=== PATIENT | female | born 1975 | race African-American/Black ===

== ENCOUNTER 2018-10-29 16:51 | Inpatient (IN) | payer MEDICAID, OTHER ==
[~2018-10-29] VITALS: Ht 154.9 cm; Wt 85.3 kg
[2018-10-29] MEDS ORDERED: KETOROLAC 15MG/ML VIAL IV ONE (17:30)
[2018-10-29] MEDS ORDERED: ONDANSETRON HCL 4MG/2ML INJ IV ONE (17:30)
[2018-10-29] MEDS ORDERED: SODIUM CHLORIDE 0.9% 1,000 ML IV ONE (17:30)
[2018-10-29] MEDS ORDERED: ASPIRIN 81MG TABLET PO ONE (18:00)
[2018-10-29 19:31] LABS: BASOPHILS % 0.5 % (0.0-2.0); EOSINOPHILS % 0.6 % (0.0-5.0); HEMATOCRIT. 28.2 % (36.0-48.0); HEMOGLOBIN. 9.4 g/dL (12.0-16.0); LYMPHOCYTES % 15.6 % (20.0-50.0); MEAN CORPUSCULAR HEMOGLOBIN 23.3 pg (28.0-32.0); MEAN CORPUSCULAR VOLUME 69.8 fL (81.0-99.0); MEAN PLATELET VOLUME 8.2 fl (7.4-10.4); MONOCYTES % 5.1 % (2.0-8.0); NEUTROPHILS % 78.2 % (40.0-76.0); PLATELET 420 x1000/uL (130-400); RED BLOOD CELL COUNT 4.04 mill/uL (4.2-5.4); RED CELL DISTRIBUTION WIDTH 30.3 % (11.6-14.6)
[2018-10-29 19:37] LABS: CHLORIDE 109 mEq/L (98-107)
[2018-10-29] MEDS: NITROGLYCERIN 0.4MG TABLET SL SL PRN ×2 (19:39→19:57)
[2018-10-29 19:42] LABS: HCG SCREEN NEGATIVE
[2018-10-29] MEDS ORDERED: POTASSIUM CHLORIDE 20MEQ TABLET SR PO ONE (19:45)
[2018-10-29 20:02] LABS: PLATELET ESTIMATE INCREASED
[2018-10-29] MEDS ORDERED: MORPHINE SULFATE 4 MG/ML CPJ (NOT FOR IM USE) IV ONE (20:15)
[2018-10-29 20:29] LABS: D-DIMER 0.43 mg/L FEU (<0.50); INR 1.2; PARTIAL THROMBOPLASTIN TIME 27.3 sec (23.4-31.0); PROTHROMBIN TIME 11.6 sec (9.1-11.1)
[2018-10-29] MEDS ORDERED: IOHEXOL-350 100 ML BOTTLE ONE (20:39)
[2018-10-29 22:00] VITALS: BP 125/75
[2018-10-29 22:04] VITALS: BP 121/75
[2018-10-29] MEDS ORDERED: TLXL5 PO (22:41)
[2018-10-29] MEDS ORDERED: PROT40 PO (22:41)
[2018-10-29] MEDS ORDERED: APIX5TAB PO (22:41)
[2018-10-29] MEDS ORDERED: DOCU-138 PO (22:41)
[2018-10-29] MEDS ORDERED: IPRATROPIUM/ALBUTEROL 0.5-3(2.5)MG/3ML NEB INH PRN (23:45)
[2018-10-29] MEDS ORDERED: DIPHENHYDRAMINE 50MG/ML VIAL IV PRN (23:45)
[2018-10-29] MEDS ORDERED: CLONIDINE 0.1MG TABLET PO PRN (23:45)
[2018-10-29] MEDS ORDERED: MAGNESIUM/ALUMINUM HYDROXIDE/SIMETHICONE 30ML UDC PO PRN (23:45)
[2018-10-30] VITALS: BP 132/84
[2018-10-30] MEDS ORDERED: ACETAMINOPHEN 325MG TABLET PO PRN (00:15)
[2018-10-30] MEDS ORDERED: ONDANSETRON HCL 4MG/2ML INJ IV PRN (00:15)
[2018-10-30] MEDS ORDERED: LEVOFLOXACIN 500MG PREMIX 100 ML IV SCH (00:15)
[2018-10-30] MEDS: SODIUM CHLORIDE 0.9% 1,000 ML IV SCH ×3 (00:39→16:19)
[2018-10-30] MEDS: MORPHINE SULFATE 4 MG/ML CPJ (NOT FOR IM USE) IV PRN ×2 (00:39→06:04)
[2018-10-30] MEDS: ONDANSETRON HCL 4MG/2ML INJ IV PRN ×3 (01:01→18:38)
[2018-10-30] MEDS: LEVOFLOXACIN 500MG PREMIX 100 ML IV SCH (01:02)
[2018-10-30] MEDS: ENOXAPARIN 80MG/0.8ML SYR SUBCUT SCH ×2 (01:02→13:31)
[2018-10-30 04:00] VITALS: BP 124/73
[2018-10-30] MEDS: SODIUM CHLORIDE 0.9% INJ 3ML FLUSH IVF SCH ×3 (06:04→21:01)
[2018-10-30 08:00] VITALS: BP 119/76
[2018-10-30] MEDS: PANTOPRAZOLE SODIUM 40 MG/VIAL IV SCH (08:18)
[2018-10-30] MEDS: ACETAMINOPHEN 325MG TABLET PO PRN ×3 (08:21→20:56)
[2018-10-30 09:05] LABS: TOTAL IRON BINDING CAPACITY 400 ug/dL (250-450)
[2018-10-30 12:00] VITALS: BP 111/76
[2018-10-30] MEDS ORDERED: HYDROMORPHONE HCL/PF 2MG/ML CPJ IV NR (12:00)
[2018-10-30 12:01] LABS: CLARITY URINE CLEAR (CLEAR); COLOR URINE YELLOW (YELLOW); KETONES URINE NEGATIVE (NEGATIVE); LEUKOCYTE ESTERASE URINE NEGATIVE (NEGATIVE); NITRITE URINE NEGATIVE (NEGATIVE); OCCULT BLOOD URINE NEGATIVE (NEGATIVE); PROTEIN URINE NEGATIVE (NEGATIVE); SPECIFIC GRAVITY URINE 1.007 (1.005-1.030); UROBILINOGEN URINE 0.2 E.U./dL (0.2-1.0)
[2018-10-30] MEDS ORDERED: MAGNESIUM 1 G PREMIX 100 ML IV NR (13:00)
[2018-10-30] MEDS: GUAIFENESIN 200MG/10ML SUGAR FREE UDC PO PRN (15:20)
[2018-10-30 16:00] VITALS: BP 145/87
[2018-10-30] MEDS ORDERED: IRON SUCROSE COMPLEX 100 MG/5 ML ML IV SCH (16:30)
[2018-10-30] MEDS: HYDROMORPHONE HCL/PF 2MG/ML CPJ IV PRN ×2 (17:39→23:35)
[2018-10-30 20:00] VITALS: BP 128/81
[2018-10-30] MEDS: IPRATROPIUM/ALBUTEROL 0.5-3(2.5)MG/3ML NEB HHN SCH (20:52)
[2018-10-31] VITALS: BP 114/62
[2018-10-31] MEDS: ENOXAPARIN 80MG/0.8ML SYR SUBCUT SCH ×3 (01:00→17:11)
[2018-10-31] MEDS: LEVOFLOXACIN 500MG PREMIX 100 ML IV SCH (01:58)
[2018-10-31] MEDS: IPRATROPIUM/ALBUTEROL 0.5-3(2.5)MG/3ML NEB HHN SCH ×3 (02:20→12:00)
[2018-10-31] MEDS: ACETAMINOPHEN 325MG TABLET PO PRN ×3 (03:43→20:28)
[2018-10-31] MEDS: ONDANSETRON HCL 4MG/2ML INJ IV PRN ×2 (03:50→09:12)
[2018-10-31 04:00] VITALS: BP 124/74
[2018-10-31] MEDS: HYDROMORPHONE HCL/PF 2MG/ML CPJ IV PRN ×4 (05:50→23:34)
[2018-10-31] MEDS: SODIUM CHLORIDE 0.9% INJ 3ML FLUSH IVF SCH ×3 (05:50→20:18)
[2018-10-31 07:20] LABS: BASOPHILS % 0.3 % (0.0-2.0); EOSINOPHILS % 0.3 % (0.0-5.0); HEMATOCRIT. 27.5 % (36.0-48.0); HEMOGLOBIN. 9.2 g/dL (12.0-16.0); LYMPHOCYTES % 22.1 % (20.0-50.0); MEAN CORPUSCULAR HEMOGLOBIN 23.6 pg (28.0-32.0); MEAN CORPUSCULAR VOLUME 70.1 fL (81.0-99.0); MEAN PLATELET VOLUME 8.5 fl (7.4-10.4); MONOCYTES % 6.8 % (2.0-8.0); NEUTROPHILS % 70.5 % (40.0-76.0); PLATELET 373 x1000/uL (130-400); RED BLOOD CELL COUNT 3.92 mill/uL (4.2-5.4); RED CELL DISTRIBUTION WIDTH 29.6 % (11.6-14.6)
[2018-10-31 07:35] LABS: CHLORIDE 105 mEq/L (98-107)
[2018-10-31 07:46] LABS: PHOSPHORUS 3.1 mg/dL (2.5-4.9)
[2018-10-31 08:00] VITALS: BP 114/71
[2018-10-31] MEDS: GUAIFENESIN 200MG/10ML SUGAR FREE UDC PO PRN (08:14)
[2018-10-31] MEDS: PANTOPRAZOLE SODIUM 40 MG/VIAL IV SCH (08:14)
[2018-10-31] MEDS: IRON SUCROSE COMPLEX 100 MG/5 ML ML IV SCH (08:14)
[2018-10-31] MEDS: DOCUSATE SODIUM 250MG CAPSULE PO SCH ×2 (11:24→17:11)
[2018-10-31] MEDS: POTASSIUM CHLORIDE 20MEQ TABLET SR PO SCH ×3 (11:24→16:00)
[2018-10-31] MEDS: SODIUM CHLORIDE 0.9% 1,000 ML IV SCH (11:24)
[2018-10-31 12:00] VITALS: BP 108/50
[2018-10-31 16:00] VITALS: BP 117/73
[2018-10-31] MEDS ORDERED: POTASSIUM CHLORIDE 20MEQ TABLET SR PO NR (18:00)
[2018-10-31 18:22] LABS: BG BASE EXCESS -0.6 mmol/L (-2.0-2.0); BG CARBOXYHEMOGLOBIN 0.4 % (0.5-1.5); BG DEOXYHEMOGLOBIN 6.9 % (0.0-5.0); BG FRACTION INSPIRED OXYGEN 21; BG HCO3 ACT 23.9 mmol/L (22.0-26.0); BG METHEMOGLOBIN 0.1 % (0.0-1.5); BG OXYGEN SATURATION 93.1 % (92.0-98.5); BG OXYHEMOGLOBIN 92.6 % (94.0-97.0); BG PCO2 38.6 mmHg (35.0-45.0); BG PH 7.409 (7.350-7.450); BG PO2 69.8 mmHg (75.0-100.0); BG SAMPLE SITE LEFT BRACHIAL; BG TOTAL HEMOGLOBIN 10.1 g/dL (12.0-18.0); BG VENT MODE ROOM AIR
[2018-10-31 19:45] VITALS: BP 118/70
[2018-10-31] MEDS: PIPERACILLIN/TAZ 3.375G PREMIX 50 ML IV SCH (20:18)
[2018-10-31] MEDS: DIPHENHYDRAMINE 50MG/ML VIAL IV PRN (20:28)
[2018-10-31] MEDS: IPRATROPIUM/ALBUTEROL 0.5-3(2.5)MG/3ML NEB INH SCH (21:27)
[2018-11-01 00:05] VITALS: BP 116/58
[2018-11-01] MEDS: LEVOFLOXACIN 500MG PREMIX 100 ML IV SCH (00:59)
[2018-11-01] MEDS: PIPERACILLIN/TAZ 3.375G PREMIX 50 ML IV SCH ×4 (02:42→21:34)
[2018-11-01 04:00] VITALS: BP 102/47
[2018-11-01] MEDS: IPRATROPIUM/ALBUTEROL 0.5-3(2.5)MG/3ML NEB INH SCH ×6 (04:58→21:38)
[2018-11-01] MEDS: HYDROMORPHONE HCL/PF 2MG/ML CPJ IV PRN ×3 (05:04→17:45)
[2018-11-01] MEDS: ENOXAPARIN 80MG/0.8ML SYR SUBCUT SCH ×3 (05:04→17:45)
[2018-11-01] MEDS: SODIUM CHLORIDE 0.9% INJ 3ML FLUSH IVF SCH ×3 (05:04→21:36)
[2018-11-01 08:00] VITALS: BP 111/73
[2018-11-01] MEDS: IRON SUCROSE COMPLEX 100 MG/5 ML ML IV SCH (08:57)
[2018-11-01] MEDS: DOCUSATE SODIUM 250MG CAPSULE PO SCH ×2 (08:57→17:45)
[2018-11-01] MEDS: DIPHENHYDRAMINE 50MG/ML VIAL IV PRN ×3 (08:57→21:47)
[2018-11-01] MEDS: PANTOPRAZOLE SODIUM 40 MG/VIAL IV SCH (09:03)
[2018-11-01] MEDS: SODIUM CHLORIDE 0.9% 1,000 ML IV SCH (11:25)
[2018-11-01 12:00] VITALS: BP 96/54
[2018-11-01] MEDS ORDERED: SIMETHICONE 80MG TABLET CHEW PO PRN (12:15)
[2018-11-01] MEDS: ACETAMINOPHEN 325MG TABLET PO PRN (15:39)
[2018-11-01 16:00] VITALS: BP 131/61
[2018-11-01 20:00] VITALS: BP 101/58
[2018-11-01] MEDS: GUAIFENESIN 600MG ER TABLET PO SCH (21:34)
[2018-11-01] MEDS: ONDANSETRON HCL 4MG/2ML INJ IV PRN (22:12)
[2018-11-02] VITALS: BP 105/55
[2018-11-02] MEDS: ACETAMINOPHEN 325MG TABLET PO PRN (00:48)
[2018-11-02] MEDS: HYDROMORPHONE HCL/PF 2MG/ML CPJ IV PRN ×5 (00:49→21:31)
[2018-11-02] MEDS: LEVOFLOXACIN 500MG PREMIX 100 ML IV SCH (00:49)
[2018-11-02] MEDS: PIPERACILLIN/TAZ 3.375G PREMIX 50 ML IV SCH ×2 (02:53→08:26)
[2018-11-02 04:00] VITALS: BP 104/56
[2018-11-02] MEDS: IPRATROPIUM/ALBUTEROL 0.5-3(2.5)MG/3ML NEB INH SCH ×7 (04:31→23:48)
[2018-11-02] MEDS: SODIUM CHLORIDE 0.9% 1,000 ML IV SCH (06:29)
[2018-11-02] MEDS: SODIUM CHLORIDE 0.9% INJ 3ML FLUSH IVF SCH ×2 (06:30→21:30)
[2018-11-02 08:00] VITALS: BP 99/56
[2018-11-02 08:14] LABS: CHLORIDE 102 mEq/L (98-107)
[2018-11-02] MEDS: IRON SUCROSE COMPLEX 100 MG/5 ML ML IV SCH (08:26)
[2018-11-02] MEDS: APIXABAN 5 MG TABLET PO SCH ×2 (08:27→17:27)
[2018-11-02] MEDS: GUAIFENESIN 600MG ER TABLET PO SCH ×2 (08:27→17:27)
[2018-11-02] MEDS: DOCUSATE SODIUM 250MG CAPSULE PO SCH ×2 (08:27→17:30)
[2018-11-02] MEDS: PANTOPRAZOLE SODIUM 40 MG/VIAL IV SCH (08:27)
[2018-11-02] MEDS: DIPHENHYDRAMINE 50MG/ML VIAL IV PRN ×2 (08:32→17:46)
[2018-11-02 12:00] VITALS: BP 107/69
[2018-11-02] MEDS: ONDANSETRON HCL 4MG/2ML INJ IV PRN (13:27)
[2018-11-02] MEDS ORDERED: IBUPROFEN 600MG TABLET PO PRN (14:30)
[2018-11-02 16:00] VITALS: BP 119/72
[2018-11-02] MEDS: CEFTRIAXONE 1 G PREMIX 50 ML IV SCH (16:39)
[2018-11-02] MEDS: AZITHROMYCIN 500 MG in DEXT 5% WATER 250 ML IV SCH (17:19)
[2018-11-02] MEDS: METRONIDAZOLE 500 MG PREMIX 100 ML IV SCH (19:02)
[2018-11-02 20:00] VITALS: BP 109/66
[2018-11-03] VITALS: BP 96/45
[2018-11-03] MEDS: GUAIFENESIN 200MG/10ML SUGAR FREE UDC PO PRN ×3 (00:07→17:01)
[2018-11-03] MEDS: DIPHENHYDRAMINE 50MG/ML VIAL IV PRN ×3 (00:07→18:11)
[2018-11-03] MEDS: SODIUM CHLORIDE 0.9% 1,000 ML IV SCH ×2 (01:38→15:41)
[2018-11-03] MEDS: METRONIDAZOLE 500 MG PREMIX 100 ML IV SCH ×3 (01:38→18:11)
[2018-11-03] MEDS: HYDROMORPHONE HCL/PF 2MG/ML CPJ IV PRN ×4 (03:33→21:51)
[2018-11-03 04:00] VITALS: BP 101/65
[2018-11-03] MEDS: IPRATROPIUM/ALBUTEROL 0.5-3(2.5)MG/3ML NEB INH SCH ×5 (04:00→19:59)
[2018-11-03] MEDS: SODIUM CHLORIDE 0.9% INJ 3ML FLUSH IVF SCH ×3 (06:20→21:52)
[2018-11-03] MEDS: ACETAMINOPHEN 325MG TABLET PO PRN (06:51)
[2018-11-03 08:00] VITALS: BP 105/72
[2018-11-03] MEDS: GUAIFENESIN 600MG ER TABLET PO SCH ×2 (08:37→21:51)
[2018-11-03] MEDS: APIXABAN 5 MG TABLET PO SCH ×2 (08:37→16:13)
[2018-11-03] MEDS: PANTOPRAZOLE SODIUM 40 MG/VIAL IV SCH (08:38)
[2018-11-03] MEDS: DOCUSATE SODIUM 250MG CAPSULE PO SCH ×2 (08:38→16:13)
[2018-11-03 12:00] VITALS: BP 113/63
[2018-11-03] MEDS: CEFTRIAXONE 1 G PREMIX 50 ML IV SCH (15:39)
[2018-11-03 16:00] VITALS: BP 114/39
[2018-11-03] MEDS: AZITHROMYCIN 500 MG in DEXT 5% WATER 250 ML IV SCH (16:13)
[2018-11-03] MEDS ORDERED: BENZONATATE 100MG CAPSULE PO PRN (18:30)
[2018-11-03 20:00] VITALS: BP 110/68
[2018-11-04] VITALS: BP 110/68
[2018-11-04] MEDS: IPRATROPIUM/ALBUTEROL 0.5-3(2.5)MG/3ML NEB INH SCH ×6 (00:12→20:28)
[2018-11-04] MEDS: DIPHENHYDRAMINE 50MG/ML VIAL IV PRN ×3 (02:52→20:11)
[2018-11-04] MEDS: ACETAMINOPHEN 325MG TABLET PO PRN ×2 (02:53→21:01)
[2018-11-04] MEDS: METRONIDAZOLE 500 MG PREMIX 100 ML IV SCH ×3 (02:53→17:06)
[2018-11-04 04:00] VITALS: BP 110/56
[2018-11-04] MEDS: HYDROMORPHONE HCL/PF 2MG/ML CPJ IV PRN ×2 (04:59→09:47)
[2018-11-04] MEDS: SODIUM CHLORIDE 0.9% INJ 3ML FLUSH IVF SCH ×3 (05:03→22:51)
[2018-11-04] MEDS: SODIUM CHLORIDE 0.9% 1,000 ML IV SCH ×2 (05:04→17:06)
[2018-11-04 08:00] VITALS: BP 115/67
[2018-11-04] MEDS: DOCUSATE SODIUM 250MG CAPSULE PO SCH (09:00)
[2018-11-04] MEDS: APIXABAN 5 MG TABLET PO SCH ×2 (09:46→18:07)
[2018-11-04] MEDS: GUAIFENESIN 200MG/10ML SUGAR FREE UDC PO PRN (09:46)
[2018-11-04] MEDS: PANTOPRAZOLE SODIUM 40 MG/VIAL IV SCH (09:46)
[2018-11-04] MEDS: GUAIFENESIN 600MG ER TABLET PO SCH ×2 (09:58→21:00)
[2018-11-04 12:00] VITALS: BP 114/67
[2018-11-04] MEDS: CEFTRIAXONE 1 G PREMIX 50 ML IV SCH (15:26)
[2018-11-04] MEDS: HYDROMORPHONE HCL/PF 2MG/ML CPJ IM PRN ×2 (17:08→23:06)
[2018-11-04] MEDS: AZITHROMYCIN 500 MG in DEXT 5% WATER 250 ML IV SCH (18:07)
[2018-11-04 20:00] VITALS: BP 127/89
[2018-11-05] VITALS: BP 100/42
[2018-11-05] MEDS: IPRATROPIUM/ALBUTEROL 0.5-3(2.5)MG/3ML NEB INH SCH ×5 (00:30→14:53)
[2018-11-05] MEDS: METRONIDAZOLE 500 MG PREMIX 100 ML IV SCH ×2 (03:07→09:39)
[2018-11-05] MEDS: DIPHENHYDRAMINE 50MG/ML VIAL IV PRN ×2 (03:20→09:58)
[2018-11-05 04:00] VITALS: BP 105/68
[2018-11-05] MEDS: HYDROMORPHONE HCL/PF 2MG/ML CPJ IM PRN (05:33)
[2018-11-05] MEDS: SODIUM CHLORIDE 0.9% INJ 3ML FLUSH IVF SCH (05:35)
[2018-11-05 08:00] VITALS: BP 121/77
[2018-11-05] MEDS: GUAIFENESIN 600MG ER TABLET PO SCH (09:39)
[2018-11-05] MEDS: PANTOPRAZOLE SODIUM 40 MG/VIAL IV SCH (09:39)
[2018-11-05] MEDS: APIXABAN 5 MG TABLET PO SCH (09:39)
[2018-11-05 12:00] VITALS: BP 103/59
[2018-11-05 13:01] VITALS: BP 103/59
[2018-11-06 13:11] LABS: QFT MITOGEN VALUE >10.00 IU/mL (.); QFT TB GOLD PLUS Negative (Negative); QFT TB1 AG VALUE 0.34 IU/mL (.)
== END 2018-11-05 16:20 | disposition home or self-care (01) | DRG 720 ==
LOC: ER 16:51 → 5WST 20:06 → EDBEDREQTM 20:11 → EDBEDREQ 20:11 → ENRESERV 21:19 → 5WST 11-04 05:18
PROVIDERS: ADMIT Internal Medicine; ATTEND Internal Medicine
DX: A41.9 Sepsis, unspecified organism (principal); J96.00 Acute respiratory failure, unspecified whether with hypoxia or hypercapnia; K52.9 Noninfective gastroenteritis and colitis, unspecified; I82.432 Acute embolism and thrombosis of left popliteal vein; E87.6 Hypokalemia; D50.9 Iron deficiency anemia, unspecified; D25.9 Leiomyoma of uterus, unspecified; J98.11 Atelectasis; Z86.711 Personal history of pulmonary embolism; Z98.891 History of uterine scar from previous surgery; Z79.01 Long term (current) use of anticoagulants; J12.9 Viral pneumonia, unspecified
CPT/HCPCS: 36415; 36600; 71045; 71275; 74018; 74176; 76856; 80048; 82270; 82375; 82378; 82805; 83540; 83550; 83735; 83880; 84100; 84484; 84703; 85379; 86480; 86738; 87015; 87045; 87070; 87427; 87449; 87493; 87804; 89055; 93005; 93970; 94640; 96361; 96374; 96375; 99285; C1893; C9113; J0456; J0696; J1170; J1200; J1650; J1885; J1956; J2270; J2405; J2543; J3475; J3490; J7030; J7060; J7620; Q9967

== ENCOUNTER 2020-08-19 23:54 | Emergency (ER) | payer MEDICAID, OTHER ==
[~2020-08-19] VITALS: Ht 157.5 cm; Wt 91.0 kg
[~2020-08-19 23:54] MED LIST: APIX5TAB PO; DOCU-138 PO; PROT40 PO; TLXL5 PO
[2020-08-20 00:46] LABS: BASOPHILS % 0.3 % (0.0-2.0); EOSINOPHILS % 0.9 % (0.0-5.0); HEMATOCRIT. 40.3 % (36.0-48.0); HEMOGLOBIN. 14.2 g/dL (12.0-16.0); LYMPHOCYTES % 32.7 % (20.0-50.0); MEAN CORPUSCULAR HEMOGLOBIN 30.4 pg (28.0-32.0); MEAN CORPUSCULAR VOLUME 86.4 fL (81.0-99.0); MEAN PLATELET VOLUME 6.9 fl (7.4-10.4); MONOCYTES % 2.9 % (2.0-8.0); NEUTROPHILS % 63.2 % (40.0-76.0); PLATELET 336 x1000/uL (130-400); RED BLOOD CELL COUNT 4.67 mill/uL (4.2-5.4); RED CELL DISTRIBUTION WIDTH 15.7 % (11.6-14.6)
[2020-08-20 00:56] LABS: CHLORIDE 111 mEq/L (98-107)
[2020-08-20] MEDS ORDERED: HYDROCODONE/ACETAMINOPHEN 5/325MG TABLET PO ONE (01:45)
[2020-08-20] MEDS ORDERED: IOHEXOL-350 100 ML BOTTLE ONE (02:38)
[2020-08-20 02:48] VITALS: BP 105/75
== END 2020-08-20 02:49 | disposition home or self-care (01) ==
LOC: ER 23:54
DX: R07.89 Other chest pain (principal); F41.9 Anxiety disorder, unspecified; Z86.711 Personal history of pulmonary embolism; Z98.890 Other specified postprocedural states
CPT/HCPCS: 36415; 70450; 71045; 71275; 80053; 81025; 83880; 84484; 85025; 93005; 99285; Q9967